=== PATIENT | female | born 1995 | race Two or more races ===

== ENCOUNTER → 2016-11-05 | Outpatient (CLI) | payer OTHER ==
--- NOTE | 2016-11-05 20:15 | REP ---
HISTORY: Pain after trauma. COMPARISON: None. FINDINGS: The joint spaces are symmetric and relatively well maintained. There is no evidence of acute fracture or destructive osseous lesion. IMPRESSION: Negative. Signed by Wiliam Strickland DO 11/06/2016 10:37 A
== END ==
LOC: M LRY 19:29
PROVIDERS: ATTEND Nurse Practitioner Family
DX: S99.922A Unspecified injury of left foot, initial encounter (principal); X58.XXXA Exposure to other specified factors, initial encounter; Y93.9 Activity, unspecified; Y92.9 Unspecified place or not applicable; Y99.8 Other external cause status
CPT/HCPCS: 73630; G0463

== ENCOUNTER → 2018-05-24 | Outpatient (CLI) | payer OTHER ==
--- NOTE | 2018-05-25 08:21 | REP ---
Clinical: Anatomical evaluation. Comparison: None available . Findings: Examination demonstrates a single live intrauterine in cephalic presentation. motion is identified by technologist. Placenta is noted the posterior and grade grade zero without evidence for placenta previa or abruption. Amniotic fluid volume is normal. Cervix measures 3.1 cm in length and appears closed. No evidence for nuchal cord. Gestational age by LMP 24 weeks 6 days with JESSICA 09/07/2018 . Gestational age by current measurements 22 weeks 4 days with JESSICA 09/23/2018 . FHR equals 141 beats per minute. BPD 5.8 cm 23 weeks 5 days HC 21.1 cm 23 weeks 1 day AC 17.2 cm 22 weeks 1 day FL 4.0 cm 22 weeks 5 days HL 3.5 cm 22 weeks 0 days HC/AC ratio 1.23 Estimated weight 511 grams ( 42nd percentile). Anatomical assessment demonstrates normal structures including cranium, choroid plexus, cavum, cerebellum/posterior fossa, facial features, lungs, four-chamber heart/ventricular outflow tracts, diaphragm, stomach, cord insertion/three-vessel cord, kidneys/bladder, spine, and extremities. Impression: Single live intrauterine in cephalic presentation. Growth is within normal range. Anatomical assessment is complete and normal. Electronically Signed by Adriel Padilla MD 05/25/2018 08:12 A
== END ==
LOC: M RAD 09:48
PROVIDERS: ATTEND Nurse Practitioner Women's Health
DX: Z36.89 Encounter for other specified antenatal screening (principal); Z3A.24 24 weeks gestation of pregnancy

== ENCOUNTER 2018-08-27 19:06 | Outpatient (CLI) | payer OTHER ==
[~2018-08-27] VITALS: Ht 157.5 cm; Wt 105.2 kg
[~2018-08-27 19:06] MED LIST: PRENTAB9 PO
[2018-08-27 19:35] VITALS: BP 130/73
--- NOTE | 2018-08-27 20:31 | IPNPDOC ---
Text Note Date of Service The patient was seen on 08/27/18. NOTE [id number] @ 2027 23 yo @ 38+3 presents to L&D ambulatory with concerns of LBP. Denies DFM, LOF, CTXs, and vaginal bleeding. She is non-compliant COB patient. Hx of PTD x 2 @ 30 and 34 wks, with starting BMI-40.06. Circlage placed in early -removed on 08/10. S: resting in bed in semi-fowlers c/o LBP that goes down her leg. Reports hx of sciatica. Walked around [employer] for 4 hours with the LBP getting worse the more she walked. Once home she took a shower that helped, tried tylenol, warm packs. Gets complete relief with shower. Tylenol and warm pack helped a some. Denies cramping or tightening of abdomen. Denies CTXs, LOF, vaginal bleeding, and DFM. O: VS- WNL, afebrile FHR- 130, moderate variability, + accels, no decels CTX- none SVE- 3/50/-3, moderate/vtx/mid A: 23 yo @ 38+3 reactive NST. No cervical change for 2 wks. Sciatic pain P: Flexaril 10 mg PO prior to discharge. Spouse is here to drive patient home. Strict return precautions. Continue to use warm pack and take tylenol 1000 mg Q 8 hours, stretching for sciatica VS,Fishbone, I+O VS, Fishbone, I+O Vital Signs Date Time Temp Pulse Resp B/P (MAP) Pulse Ox O2 Delivery O2 Flow Rate FiO2 08/27/18 19:35 98.6 125 18 130/73 (92) FIDENCIO LOPEZ CNM Aug 27, 2018 20:31
[2018-08-27] MEDS ORDERED: CYCLOBENZAPRINE 10 MG TAB PO ONE (20:45)
== END 2018-08-27 20:59 | disposition home or self-care (01) ==
LOC: M LDO 19:06
PROVIDERS: ATTEND Midwife
DX: O26.893 Other specified pregnancy related conditions, third trimester (principal); Z3A.38 38 weeks gestation of pregnancy; M54.30 Sciatica, unspecified side
CPT/HCPCS: 59025; G0378; G0463

== ENCOUNTER 2018-09-01 15:02 | Outpatient (CLI) | payer OTHER ==
[2018-09-01] VITALS (8 sets, daily range): BP systolic 118–134; BP diastolic 66–84
[~2018-09-01] VITALS: Ht 157.5 cm; Wt 104.8 kg
[2018-09-01] MEDS ORDERED: MAPA500T2 PO (15:23)
[2018-09-01] MEDS ORDERED: TUMS750C22 PO (15:23)
[2018-09-01 16:44] LABS: HEMOGLOBIN 12.3 g/dl (12.0-15.5); MEAN CORPUSCULAR HEMOGLOBIN 29.6 pg (27.0-33.0); MEAN CORPUSCULAR HGB CONC 32.4 g/dl (32.0-36.5); MEAN CORPUSCULAR VOLUME 91.6 fl (80.0-96.0); PLATELET COUNT, AUTOMATED 180 10^3/uL (150-450); RED BLOOD COUNT 4.15 10^6/uL (4.00-5.40); WHITE BLOOD COUNT 12.4 10^3/uL (4.0-10.0)
[2018-09-01 17:14] LABS: CREATININE,RANDOM URINE 76.7 MG/DL; TOTAL PROTEIN,RANDOM URINE 14.3 MG/DL (0.0-12.0)
[2018-09-01 17:24] LABS: ALT/SGPT 15 U/L (12-78); BILIRUBIN,TOTAL 0.3 MG/DL (0.2-1.0); CREATININE FOR GFR 0.52 MG/DL (0.55-1.30); GLOMERULAR FILTRATION RATE > 60.0 (>60); LDH LACTATE DEHYDROGENASE 203 U/L (84-246); URIC ACID 3.3 MG/DL (2.6-6.0)
== END 2018-09-01 17:58 | disposition home or self-care (01) ==
LOC: M LDO 15:02
PROVIDERS: ATTEND Obstetrics & Gynecology
DX: O26.893 Other specified pregnancy related conditions, third trimester (principal); Z3A.39 39 weeks gestation of pregnancy; R03.0 Elevated blood-pressure reading, without diagnosis of hypertension
CPT/HCPCS: 36415; 59025; 82247; 82565; 82570; 83615; 84156; 84450; 84460; 84550; 85027; G0378; G0463

== ENCOUNTER 2018-09-05 06:12 | Inpatient (IN) | payer OTHER ==
[~2018-09-05] VITALS: Ht 157.5 cm; Wt 105.3 kg
[2018-09-05] VITALS (59 sets, daily range): BP systolic 86–155; BP diastolic 48–96
[~2018-09-05 06:12] MED LIST changes: +MAPA500T2 PO; +TUMS750C22 PO
[2018-09-05] MEDS ORDERED: GAS X PO (07:29)
[2018-09-05 07:33] LABS: HEMATOCRIT 36.5 % (36.0-47.0); HEMOGLOBIN 11.8 g/dl (12.0-15.5); MEAN CORPUSCULAR HEMOGLOBIN 29.6 pg (27.0-33.0); MEAN CORPUSCULAR HGB CONC 32.3 g/dl (32.0-36.5); MEAN CORPUSCULAR VOLUME 91.5 fl (80.0-96.0); PLATELET COUNT, AUTOMATED 170 10^3/uL (150-450); RED BLOOD COUNT 3.99 10^6/uL (4.00-5.40); WHITE BLOOD COUNT 13.1 10^3/uL (4.0-10.0)
[2018-09-05] MEDS: LR 1,000 ML IV SCH ×2 (07:39→18:20)
[2018-09-05] MEDS ORDERED: LR 1,000 ML IV SCH (08:20)
[2018-09-05] MEDS ORDERED: LACTATED RINGER'S 1000 ML IV STA (08:20)
[2018-09-05] MEDS ORDERED: OXYTOCIN DRIP 30 UNITS in APPROPRIATE DILUENT 1 EA IV SCH ×2 (08:30→21:33)
--- NOTE | 2018-09-05 09:06 | HPEPDOC ---
Obstetrical History & Physical General Date of Admission September 05, 2018 at 06:12 History of Present Illness 23 y/o at 39+5 with newly diagnosed GHTN. Preg c/b Cl 3 obesity, h/o PTD at 30 and 34 wks, depression/anxiety not on meds, had a cerclage this removed at 36 weeks. Did a week of blood sugars, no GCT. No LOF/VB. Irreg ctx's only, pos FM. Information Provided By: Patient Dating Final EDC by: LMP, 1st trimester (US) Past Medical History Past Obstetrical History : Type of Delivery: Spontaneous Vaginal Del. (h/o 30 and 34 weeks) PRINCIPAL RESEARCH ECONOMIST History: No pertinent history Past Medical History Medical History obesity, endometriosis, depression, anxiety Surgical History: Appendectomy, [place] teeth, Other (laparoscopy X4) Family History Significant Family History: No pertinent family hx Social History Marital Status: Family situation: Spouse/partner home Psychosocial History: Anxiety, Depression (no meds since 11 weeks) * Smoker: non-smoker Alcohol: Denies Drugs: denies Abuse Violence Screening Have you been hit/kicked/slapp: No Have you been sexually assault: No Imunizations Tdap status: declined Influenza Status: declined Allergies Coded Allergies: Cephalosporins (Verified Allergy, Unknown, 08/16/18) Sulfa (Sulfonamide Antibiotics) (Verified Allergy, Unknown, 08/16/18) Medications Scheduled No.137/Iron/Folic Acd ( Vitamin Tablet) 1 Each Tablet, 1 TAB PO DAILY Scheduled PRN Acetaminophen (Mapap) 500 Mg Tablet, 1,000 MG PO Q6HP PRN for DISCOMFORT Calcium Carbonate (Tums) 300 Mg Tab.chew, 1 TAB PO Q6HP PRN for HEARTBURN [Gas X] , 1 TAB PO DAILYPRN PRN for INDIGESTION Physical Examination Physical Examination GENERAL: Alert and oriented times three. ABDOMEN: Gravid and non-tender to touch. FETUS: Is vertex (VTX) by sterile vaginal examination (SVE), 3/75//-2/membranes swept EXTREMITIES: No edema. Vital Signs/I&O Vital Signs Date Time Temp Pulse Resp B/P (MAP) Pulse Ox O2 Delivery O2 Flow Rate FiO2 09/05/18 06:28 98.2 130 20 133/83 (100) Laboratory Data 24H LABS Laboratory Tests 2 09/05/18 06:18: Serology Scanned Report Hepatitis B Testing 09/05/18 07:22: Nucleated Red Blood Cells % (auto) 0.0 CBC/BMP Laboratory Tests 09/05/18 07:22 Red Blood Count 3.99 L, Mean Corpuscular Volume 91.5, Mean Corpuscular Hemoglobin 29.6, Mean Corpuscular Hemoglobin Concent 32.3, Red Cell Distribution Width 14.6 H Urine Culture: Contaminated Pertinent Laboratoy Data Blood Type: O+ RBC Antibody Screen: Negative HIV: Negative Hepatitis B: Negative Hepatitis C: Unknown Rapid Plasma Reagin: Nonreactive Rubella: Immune Varicella: Nonreactive (nonimmune) Chlamydia/Gonorrhea: Negative Group B Streptococcus: Negative Quad Screen Test: Declined Cystic Fibrosis: Declined Anatomy Ultrasound Placenta Location: Posterior Normal Anatomy: Yes Placenta Previa: No Assessment Variability: Moderate Accelerations: Positive Heart Patterns: Tachycardia (intermittent) Tocometer Contractions: Yes Frequency: irregular Duration: less than 60 seconds Assessment/Plan Assessment 39+5 with GHTN, obesity, favorable cx. Plan Admit and orient. Billet Header and consent. Diet: clears Group B Streptococcus (GBS) neg Labs and intravenous (IV) per unit protocol. Counseled on Pitocin and induction of labor (IOL). Lactated Ringers (LR): Bolus 1000 mL prior to epidural, then at 125 mL/hr. Anticipate normal spontaneous delivery () C-S as appropriate. SESSIONS,GARCIA Phillips MD September 05, 2018 09:06
[2018-09-05] MEDS ORDERED: ONDANSETRON 4MG/2ML VIAL (J2405) IV PRN ×2 (11:30→14:00)
[2018-09-05] MEDS ORDERED: FENTANYL 2MCG/ML ROPIVACAINE 0.2% IN 0.9% NACL 100ML IVBAG As Ordered ONE (13:28)
[2018-09-05] MEDS ORDERED: EPIDURAL COMMENT XX SCH (14:00)
[2018-09-05] MEDS ORDERED: LACTATED RINGER'S 1000 ML IV PRN (14:00)
[2018-09-05] MEDS ORDERED: REFRIGERATOR IV KEYS XX PRN (14:00)
[2018-09-05] MEDS ORDERED: EPIDURAL/PCA KEYS XX PRN (14:00)
[2018-09-05] MEDS ORDERED: NALOXONE INJ 0.4 MG/1 ML VIAL (J2310) IV PRN (14:00)
[2018-09-05] MEDS ORDERED: FENTANYL/ROPIVACAINE/NACL BAG 100 ML EPIDURAL SCH (14:00)
[2018-09-05] MEDS ORDERED: diphenhydrAMINE INJ 50MG/ML VIAL (J1200) IV PRN (14:00)
[2018-09-05] MEDS: ePHEDrine SULFATE 25 MG/5 ML(5MG/ML) SYRINGE IV PRN ×4 (15:38→18:29)
--- NOTE | 2018-09-05 18:06 | IPNPDOC ---
Text Note Date of Service The patient was seen on 09/05/18. NOTE I have been kept abreast of happenings throughout the day. Reg painful ctx's, just vomited. Pit at 14 mu/min Epidural in now to good effect Cx /-1, AROM with dark thick mec noted IUPC placed Will notify NICU team to be at delivery Recheck in ~2 hrs, sooner prn Sessions A-FIB/CARINA A-FIB History Current/History of A-Fib/PAF?: No VS,Fishbone, I+O VS, Fishbone, I+O Laboratory Tests 09/05/18 07:22 Red Blood Count 3.99 L, Mean Corpuscular Volume 91.5, Mean Corpuscular Hemo globin 29.6, Mean Corpuscular Hemoglobin Concent 32.3, Red Cell Distribution Width 14.6 H Vital Signs Date Time Temp Pulse Resp B/P (MAP) Pulse Ox O2 Delivery O2 Flow Rate FiO2 09/05/18 13:04 100 138/86 (103) 09/05/18 12:29 97 09/05/18 11:30 98.6 20 SESSIONS,GARCIA Phillips MD September 05, 2018 18:06
[2018-09-05] MEDS ORDERED: ePHEDrine INJ 50 MG/ML VIAL IV STA (18:25)
[2018-09-05] MEDS ORDERED: ePHEDrine INJ 50 MG/ML VIAL IV PRN (19:00)
[2018-09-05] MEDS ORDERED: LR 500 ML IV SCH (20:15)
--- NOTE | 2018-09-05 20:36 | IPNPDOC ---
Text Note Date of Service The patient was seen on 09/05/18. NOTE Feeling lots more pressure. NST Cat 1 Cx 7-8/100/-1 Doing well, recheck in 2 hrs, sooner prn Sessions A-FIB/CARINA A-FIB History Current/History of A-Fib/PAF?: No VS,Fishbone, I+O VS, Fishbone, I+O Laboratory Tests 09/05/18 07:22 Red Blood Count 3.99 L, Mean Corpuscular Volume 91.5, Mean Corpuscular Hemoglobin 29.6, Mean Corpuscular Hemoglobin Concent 32.3, Red Cell Distribution Width 14.6 H Vital Signs Date Time Temp Pulse Resp B/P (MAP) Pulse Ox O2 Delivery O2 Flow Rate FiO2 09/05/18 19:31 98 18 114/73 (87) 09/05/18 19:14 98.8 09/05/18 12:29 97 SESSIONS,GARCIA Phillips MD September 05, 2018 20:36
[2018-09-05] MEDS ORDERED: MEASLES,MUMPS,RUBELLA VACCINE INJ (MMR-II) (90707) SC SCH (21:45)
[2018-09-05] MEDS ORDERED: DIBUCAINE 1% OINTMENT 30GM TOP PRN (21:45)
[2018-09-05] MEDS ORDERED: METOCLOPRAMIDE INJ 10MG/2ML VIAL (J2765) IV PRN (21:45)
[2018-09-05] MEDS ORDERED: RHOGAM 300 MCG (1500 IU) INJ (J2790) IM SCH (21:45)
--- NOTE | 2018-09-05 21:55 | DNPDOC ---
[facility] Delivery Note Delivery Note DATE OF DELIVERY: [id number]@[id number] PREDELIVERY DIAGNOSIS: 39 5/7 weeks' gestation and labor. POST DELIVERY DIAGNOSIS: Delivered. PROCEDURE: Spontaneous vaginal delivery PROFESSOR OF BIOCHEMISTRY: Dr. Fowler ANESTHESIA: epidural ESTIMATED BLOOD LOSS: 300 mL. FINDINGS: 6 pound 15 ounce female , Score DELIVERY SUMMARY: Good pusher, No delay of the vtx or ant/post shoulders. Good tone but no cry when placed on abd. Cord quickly C/C by FOB and taken to warmer, Dr Velazquez present just after delivery. See their note for suctioning/resuscitation. Cord blood. Small inner right labial lac repaired with 4-0 vicryl. Intact cx and per and vag o/w. Placenta intact, fundus firm. Pit going 999. Uncomplicated. Signif gush of blood when cleaning her up, bimanual done and a clot removed from the SARAH/Cx successfully. No further signif VB, nl lochia only. GARCIA Mackey MD, MD September 05, 2018 21:55
[2018-09-06] MEDS: ACETAMINOPHEN TAB 650MG DOSE (2X325MG) PO PRN ×3 (03:31→17:35)
[2018-09-06 05:56] VITALS: BP 120/56
--- NOTE | 2018-09-06 07:20 | IPNPDOC ---
Text Note Date of Service The patient was seen on 09/06/18. NOTE PPD1 States feeling well, pain controlled with prescribed meds. Baby bonding and feeding well. No heavy VB. Lochia slowing. Ambulatory. Tolerating PO without issues. Voiding spont. No CP/LP/SOB. VSSAF NAD A&O LE no C/C/E Ut at U-2, firm a/p: Doing well. Cont routine care. D/C tomorrow likely. Sessions A-FIB/CARINA A-FIB History Current/History of A-Fib/PAF?: No VS,Fishbone, I+O VS, Fishbone, I+O Laboratory Tests 09/05/18 07:22 Red Blood Count 3.99 L, Mean Corpuscular Volume 91.5, Mean Corpuscular Hemoglobin 29.6, Mean Corpuscular Hemoglobin Concent 32.3, Red Cell Distribution Width 14.6 H Vital Signs Date Time Temp Pulse Resp B/P (MAP) Pulse Ox O2 Delivery O2 Flow Rate FiO2 09/06/18 05:56 98.9 112 16 120/56 (77) 09/05/18 12:29 97 I&O- Last 24 Hours up to 6 AM 09/06/18 06:00 Intake Total 4385 ml Output Total 2500 ml Balance 1885 ml SESSIONS,GARCIA Phillips MD September 06, 2018 07:20
[2018-09-06] MEDS: PRENATAL VITAMINS CHEWABLE TABLET PO SCH (09:19)
[2018-09-06] MEDS: DOCUSATE SODIUM 100 MG CAP PO SCH ×2 (09:19→20:21)
[2018-09-06 18:00] VITALS: BP 133/72
[2018-09-06] MEDS: IBUPROFEN 800 MG TAB PO PRN (20:22)
[2018-09-07] MEDS: ACETAMINOPHEN TAB 650MG DOSE (2X325MG) PO PRN (02:16)
[2018-09-07] MEDS: IBUPROFEN 800 MG TAB PO PRN (05:34)
[2018-09-07 05:38] VITALS: BP 112/66
[2018-09-07] MEDS ORDERED: COLA100C5 PO (07:44)
[2018-09-07] MEDS ORDERED: IBUP200C33 PO (07:49)
[2018-09-07] MEDS ORDERED: NUPE10OI TOP (07:55)
[2018-09-07] MEDS ORDERED: DIBU10OI TOP (07:55)
[2018-09-07] MEDS ORDERED: ADACEL/BOOSTRIX VACCINE (DIPHTH/PERTUSS/ACELL/TETANUS)0.5ML SYR (90715) IM ONE (09:00)
[2018-09-07] MEDS: PRENATAL VITAMINS CHEWABLE TABLET PO SCH (09:12)
[2018-09-07] MEDS: DOCUSATE SODIUM 100 MG CAP PO SCH (09:12)
--- NOTE | 2018-09-07 12:28 | DSES ---
DATE OF ADMISSION: 09/05/2018 DATE OF DISCHARGE: 09/07/2018 This lady is a 23-year-old, 3, now para 3, was admitted for induction of labor at 39 and 5 because of gestational hypertension recently diagnosed. Risk factors is she had PTD, delivery times two. She had cerclage of the , which were removed. She has obesity. She was admitted for induction of labor with Pitocin. She had a spontaneous vaginal delivery live female 6 pounds 15 ounces, score 3, 9, and 9 at one, five, and ten minutes respectfully. Had a right labial laceration repaired. On discharge, we discussed phlebitis, cystitis, mastitis, endometritis and cellulitis, diet, exercise, pain management, perineal care. On discharge, her blood pressure is 112/66, respirations are 18, pulse 93, temperature 97.2. Her admitting hemoglobin 11.8, hematocrit 36.5, and platelets were 170. In summary, we have a term gestation delivered a live female after induction of labor, discharged improved. Followup in 6 weeks' time at [facility]. Medications were dispensed at discharge. The rest examination was unremarkable. Normocephalic, atraumatic. Neck full range of motion. Pupils equal and reactive to light. Distal pulse symmetric. No evidence of deep venous thrombosis (DVT) pulmonary embolism (PE) or superficial phlebitis. Chest is clear bilaterally to bases. No wheezes or rhonchi. No costovertebral angle (CVA) tenderness. Abdomen soft. Uterus 2 below. Lochia is moderate. Perineum is healing from labial lacerations. No rashes, lesions or pruritus. No arthralgia or myalgia. No complaint of joint pain. No complaint cough, wheeze, shortness of breath or dyspnea on exertion. She has no incontinency or frequency. No nausea, vomiting, diarrhea or constipation. In summary, we have a term gestation delivered a live female , discharged improved.
== END 2018-09-07 11:40 | disposition home or self-care (01) | DRG 807 ==
LOC: M LDI 06:12 → M OBS 23:12
PROVIDERS: ADMIT Obstetrics & Gynecology; ATTEND Obstetrics & Gynecology
PROC: 10E0XZZ Delivery of Products of Conception, External Approach (ICD-10-PCS; principal; 2018-09-05)
PROC: 0HQ9XZZ Repair Perineum Skin, External Approach (ICD-10-PCS; 2018-09-05)
DX: O13.4 Gestational [pregnancy-induced] hypertension without significant proteinuria, complicating childbirth (principal); Z37.0 Single live birth; Z3A.39 39 weeks gestation of pregnancy; E66.9 Obesity, unspecified; O99.214 Obesity complicating childbirth; O34.30 Maternal care for cervical incompetence, unspecified trimester; Z88.2 Allergy status to sulfonamides; Z88.8 Allergy status to other drugs, medicaments and biological substances; O70.0 First degree perineal laceration during delivery

== ENCOUNTER → 2019-01-24 | Outpatient (REF) | payer OTHER ==
[~2019-01-24] MED LIST changes: +COLA100C5 PO; +DIBU10OI TOP; +GAS X PO; +IBUP200C33 PO; +NUPE10OI TOP
== END ==
LOC: M SFHCLERA 20:43
PROVIDERS: ATTEND Physician Assistant
DX: J02.9 Acute pharyngitis, unspecified (principal)

== ENCOUNTER → 2020-01-29 | Outpatient (REF) | payer OTHER ==
[2020-01-29 22:49] LABS: APPEARANCE, URINE HAZY (CLEAR); BACTERIA, URINE AUTO NEGATIVE (NEGATIVE); BILIRUBIN, URINE AUTO NEGATIVE (NEGATIVE); BLOOD, URINE BLOOD NEGATIVE (NEGATIVE); COLOR, URINE YELLOW (YELLOW); GLUCOSE, URINE (UA) AUTO NEGATIVE (NEGATIVE); KETONE, URINE AUTO TRACE mg/dL (NEGATIVE); LEUKOCYTE ESTERASE, URINE AUTO NEGATIVE (NEGATIVE); MUCUS, URINE LARGE (NEGATIVE); NITRITE, URINE AUTO NEGATIVE (NEGATIVE); PROTEIN, URINE AUTO NEGATIVE (NEGATIVE); RBC, URINE AUTO 1 /HPF (0-3); SPECIFIC GRAVITY URINE AUTO 1.034 (1.002-1.035); SQUAMOUS EPITHELIAL CELL UR AU 4 /HPF (0-6); UROBILINOGEN, URINE AUTO 0.2 mg/dL (0.0-2.0); WBC, URINE AUTO 2 /HPF (0-3)
== END ==
LOC: M LAB REF 10:51
PROVIDERS: ATTEND Physician Assistant Medical
DX: N39.0 Urinary tract infection, site not specified (principal)